=== PATIENT | male | born 1935 | race Caucasian/White ===

== ENCOUNTER 2016-05-25 18:05 | Inpatient (IN) | payer OTHER, MEDICAID ==
[~2016-05-25] VITALS: Ht 180.3 cm; Wt 75.3 kg
[2016-05-25 18:05] VITALS: BP 110/75; PULSE 68; RESP 19; TEMP 97.6; O2SAT 94
[~2016-05-25 18:05] MED LIST: ACET325T53 GT; ALBU2.5V7 INH; ARGI1POW13 PO; ASCO120G2 GT; ASPI81TA2 GT; ATEN-41 GT; BACL10TA GT; BISA10SU8 RC; BRI.2% LEFT EYE; CALC500T3 GT; CHLO118M PO; DULO30CA51 GT; FERR220S5 GT; GLIM4TAB GT; GLUC1VIA4 IJ; HYDR-1189 GT; IPRA0.2S53 NEB; LACTIN GT; LASI20 GT; MAGN400C GT; MAGN400O4 PO; METF-305 GT; MULT-1117 GT; NITR0.4T6 SL; PREG75CA GT; PROM25TA15 GT; SSREG SUBCUT; SUCR1ORA GT; SUCR1ORA2 GT; TRAV2.5D6 LEFT EYE; TYLL650 GT; VITD2000 PO; ZIN220 PO; [UNRECOGNIZED DRUG - CODE] IT; [UNRECOGNIZED DRUG - CODE] IV
--- NOTE | 2016-05-25 18:05 | NUR ---
Patient to ER bed 2 to gown for evaluation. Side rails up. Report given to TOÑO Tovar.
[2016-05-25] MEDS ORDERED: NS 1000 ML BAG IV ONE (18:15)
--- NOTE | 2016-05-25 18:15 | NUR ---
NICK Chauhan at bedside examining patient. Addendum: 05/25/16 at [address] Patel at bedside.
--- NOTE | 2016-05-25 19:25 | NUR ---
Assumed care of pt. No s/s of acute distress noted at this time
[2016-05-25] MEDS ORDERED: PIPERACILLIN/TAZO 3.375 GM in NS 50 ML IV ONE (19:30)
[2016-05-25 19:32] LABS: BASOPHILS # (AUTO) 0.1 K/uL (0.0-0.2); BASOPHILS % (AUTO) 0.5 % (0.0-2.0); EOSINOPHILS # (AUTO) 0.3 K/uL (0.0-0.4); EOSINOPHILS % (AUTO) 2.7 % (0.0-4.0); HEMATOCRIT 34.8 % (36-54); HEMOGLOBIN 11.2 g/dL (14.0-18.0); LYMPHOCYTES # (AUTO) 2.5 K/uL (1.0-5.5); LYMPHOCYTES % (AUTO) 19.6 % (20.5-51.5); MEAN CORPUSCULAR HEMOGLOBIN 27 pg (27-31); MEAN CORPUSCULAR HGB CONC 32 % (32-36); MEAN CORPUSCULAR VOLUME 85 fL (79.0-98.0); MONOCYTES % (AUTO) 7.4 % (1.7-9.3); NEUTROPHILS # (AUTO) 9.1 K/uL (1.8-7.7); NEUTROPHILS % (AUTO) 69.8 % (40.0-70.0); PLATELET COUNT (AUTO) 400 K/uL (130-430); RED BLOOD CELL COUNT(AUTO) 4.08 MIL/uL (4.2-6.2); RED CELL DISTRIBUTION WIDTH 17.6 % (9.0-15.0); WHITE BLOOD COUNT (AUTO) 12.9 K/uL (4.8-10.8)
[2016-05-25 19:35] LABS: ANION GAP 5 (5-15); CALCIUM 9.2 mg/dL (8.4-11.0); CHLORIDE 99 mmol/L (98-107); CREATININE 0.73 mg/dL (0.55-1.30); GLUCOSE 122 mg/dL (70-99); POTASSIUM 4.5 mmol/L (3.5-5.1); SODIUM SERUM 135 mmol/L (136-145); UREA NITROGEN, BLOOD 28 mg/dL (8-21)
--- NOTE | 2016-05-25 19:35 | NUR ---
# 22 gauge angiocath placed to R hand. Use of asceptic technique. Opsite placed over site. Blood return noted. Flushed with 10 cc of normal saline. No evidence of infiltration noted. Patient tolerated well.
[2016-05-25 19:39] LABS: ALANINE AMINOTRANSFERASE 21 U/L (12-78); ALBUMIN 3.3 g/dL (3.4-4.8); ASPARTATE AMINOTRANSFERASE 14 U/L (10-37); TOTAL BILIRUBIN 0.3 mg/dL (0.0-1.0); TOTAL PROTEIN, SERUM 7.7 g/dL (6.4-8.3)
[2016-05-25] MEDS ORDERED: PIPERACILLIN/TAZOBACTAM 3.375 GM/VIAL (ZOSYN) IV ONE (19:45)
[2016-05-25] MEDS ORDERED: IPRA0.2S6 INH (19:57)
[2016-05-25] MEDS ORDERED: ACET-1010 GT (19:57)
[2016-05-25] MEDS ORDERED: COLL100 GT (19:57)
[2016-05-25] MEDS ORDERED: ZOLP5TAB2 PO (19:57)
[2016-05-25] MEDS ORDERED: MORP10SO GT (19:57)
[2016-05-25] MEDS ORDERED: OMEP20CA10 GT (19:57)
[2016-05-25] MEDS ORDERED: LORA-259 GT (19:57)
[2016-05-25] MEDS ORDERED: POTA20LI25 GT (19:57)
--- NOTE | 2016-05-25 20:15 | NUR ---
Patient will be admitted to care of Dr Holt. Admitted to Tele IN unit. Will go to room 100A. Report given to TOÑO Snell.
--- NOTE | 2016-05-25 20:16 | NUR ---
ADMISSION NOTE Received patient from ER via gurney. Patient admitted with diagnosis of Aspiration PNA. Patient is awake, alert, oriented X 3. Patient oriented to hospital room, call light, toileting, pain management and safety-teach back done. Patient informed that Felipe will be his nurse and that their room number is 100A. Personal belongings checked and Belongings List documented. Call light within reach.
[2016-05-25 20:26] VITALS: BP 113/65; PULSE 65; RESP 21; TEMP 96.9; O2SAT 100
[2016-05-25] MEDS ORDERED: FLU VACC QS 2016-17(36MOS+)/PF 0.5 ML/SYR SYRINGE I.M. PRN (20:45)
--- NOTE | 2016-05-25 21:00 | NUR ---
initial notes: pt is on bed, alert, awake,oriented x 3. not distress. no pain. pt has tracheostomy with portex 6 connected to t-bar- o2 2l sating 100%. ivf infusing to right hand gauge 22- no infiltration. pt has wound to left clavicular area- with dressing. pt has a scar to right sheen. continent and use urinal. explained to pt to use call light and not to get out of bed. pt understand. needs attended. call light in reach. will monitor.
--- NOTE | 2016-05-25 22:43 | NUR ---
PAGED PAGED [facility] AT [phone] SPOKE WITH
[2016-05-25] MEDS ORDERED: ZOLPIDEM TARTRATE 5 MG TABLET PO PRN (23:00)
[2016-05-25] MEDS ORDERED: ACETAMINOPHEN 500 MG TABLET GT PRN (23:00)
[2016-05-25] MEDS ORDERED: MAGNESIUM SULFATE 50 ML IV PRN (23:00)
[2016-05-25] MEDS ORDERED: POTASSIUM CHLORIDE 10 MEQ TAB.PRT.SR PO PRN (23:00)
[2016-05-25] MEDS ORDERED: LORazepam 2 MG/ML VIAL IVP PRN (23:00)
[2016-05-25] MEDS ORDERED: DOCUSATE SODIUM 100 MG CAPSULE PO PRN (23:00)
[2016-05-25] MEDS ORDERED: DEXTROSE 50% JECT 50 ML DISP.SYRIN IVP PRN (23:00)
[2016-05-25] MEDS ORDERED: ONDANSETRON HCL 4 MG/2 ML VIAL IVP PRN (23:00)
[2016-05-25] MEDS ORDERED: HYDROcodone/ACETAMIN 5-325 MG TAB (NORCO/ VICODIN) GT SCH (23:00)
[2016-05-25] MEDS ORDERED: ALBUTEROL SULFATE 0.083% 2.5 MG/3 ML VIAL.NEB INH PRN ×2 (23:00)
[2016-05-25] MEDS ORDERED: IPRATROPIUM BROM 0.5 MG/2.5 ML VIAL.NEB (ATROVENT) INH PRN (23:00)
[2016-05-25] MEDS ORDERED: ACETAMINOPHEN 325 MG TABLET PO PRN (23:00)
--- NOTE | 2016-05-25 23:28 | NUR ---
MD MCKNIGHT CALLED [facility] AT SPOKE WITH DR.REZVANI MEYER [employer] PA[employer] BOOKKEEPER.
[2016-05-25] MEDS ORDERED: VANCOMYCIN HCL 1,000 MG in NS 250 ML IV ONE (23:30)
--- NOTE | 2016-05-25 23:30 | NUR ---
round and pain medication: pt is complain of headache. vital sign are with in normal limit. explained not to get oob. needs attended. will monitor.
[2016-05-25 23:47] VITALS: BP 125/65; PULSE 67; RESP 18; TEMP 98; O2SAT 100
[2016-05-25] MEDS: HYDROcodone/ACETAMIN 5-325 MG TAB (NORCO/ VICODIN) GT PRN (23:50)
--- NOTE | 2016-05-25 23:54 | NUR ---
CONSULT: CONSULT CALLED FOR DR. VIDA JARVIS I SPOKE WITH RICO STANFORD REASON FOR CONSULT; pleural effusion NUMBER I CALLED [phone]
[2016-05-26] VITALS (7 sets, daily range): BP systolic 106–131; BP diastolic 54–84; PULSE 55–77; RESP 15–19; TEMP 97–99; O2SAT 94–100
[2016-05-26] MEDS ORDERED: VANCOMYCIN HCL 1000 MG/VIAL IV ONE (00:15)
[2016-05-26] MEDS ORDERED: PIPERACILLIN/TAZOBACTAM 2.25 GM VIAL IV ONE (00:15)
[2016-05-26] MEDS: IPRATROPIUM BROM 0.5 MG/2.5 ML VIAL.NEB (ATROVENT) INH SCH ×4 (00:53→19:36)
--- NOTE | 2016-05-26 02:10 | NUR ---
round notes: pt is awake, alert. no pain. not distress. no sob. pt use urinal. empty and clean the urinal. needs attended. call light in reach. will monitor.
--- NOTE | 2016-05-26 04:00 | NUR ---
round notes: resting. no acute distress. no difficulty of breathing through trach. call light in reach. will monitor.
[2016-05-26] MEDS: BRIMONIDINE TARTRATE 0.2% 5 mL EYE DROPS LEFT EYE SCH ×3 (06:00→21:19)
[2016-05-26] MEDS: HYDROcodone/ACETAMIN 5-325 MG TAB (NORCO/ VICODIN) GT PRN ×3 (06:30→21:22)
[2016-05-26] MEDS: PIPERACILLIN/TAZO 2.25G/DEX-IS 50 ML IV SCH ×4 (06:33→18:28)
[2016-05-26] MEDS: INSULIN ASPART 100 UNITS/ML, 10 ML VIAL (NovoLOG) SUBCUT PRN ×2 (06:42→21:14)
--- NOTE | 2016-05-26 06:44 | NUR ---
closing: pt is awake, alert. complain of pain. blood sugar 216- cover per sliding scale. pain medication given. instructed for safety. needs attended. call light in reach. safety on. 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 will given bedside report to am altagracia.s
[2016-05-26 07:22] LABS: BASOPHILS % (AUTO) 0.3 % (0.0-2.0); EOSINOPHILS # (AUTO) 0.5 K/uL (0.0-0.4); EOSINOPHILS % (AUTO) 4.5 % (0.0-4.0); HEMATOCRIT 30.1 % (36-54); LYMPHOCYTES # (AUTO) 1.7 K/uL (1.0-5.5); LYMPHOCYTES % (AUTO) 14.9 % (20.5-51.5); MEAN CORPUSCULAR HEMOGLOBIN 28 pg (27-31); MEAN CORPUSCULAR HGB CONC 33 % (32-36); MEAN CORPUSCULAR VOLUME 84 fL (79.0-98.0); MONOCYTES % (AUTO) 8.9 % (1.7-9.3); NEUTROPHILS # (AUTO) 8.3 K/uL (1.8-7.7); NEUTROPHILS % (AUTO) 71.4 % (40.0-70.0); PLATELET COUNT (AUTO) 326 K/uL (130-430); RED BLOOD CELL COUNT(AUTO) 3.59 MIL/uL (4.2-6.2); WHITE BLOOD COUNT (AUTO) 11.5 K/uL (4.8-10.8)
[2016-05-26 07:34] LABS: ANION GAP 6 (5-15); CALCIUM 8.4 mg/dL (8.4-11.0); CHLORIDE 102 mmol/L (98-107); CREATININE 0.63 mg/dL (0.55-1.30); GLUCOSE 193 mg/dL (70-99); POTASSIUM 4.3 mmol/L (3.5-5.1); SODIUM SERUM 137 mmol/L (136-145); UREA NITROGEN, BLOOD 19 mg/dL (8-21)
[2016-05-26 07:37] LABS: PROTHROMBIN TIME 10.9 SECS (9.5-12.5)
[2016-05-26] MEDS: BACLOFEN 10 MG TABLET GT SCH ×2 (08:33→21:15)
[2016-05-26] MEDS: DULoxetine HCL 30 MG CAPSULE.DR (CYMBALTA) GT SCH (08:33)
[2016-05-26] MEDS: GLIMEPIRIDE 2 MG TABLET GT SCH (08:34)
[2016-05-26] MEDS: ASPIRIN 81 MG TAB.CHEW GT SCH (08:34)
[2016-05-26] MEDS: PREGABALIN 75 MG CAPSULE (LYRICA) GT SCH ×2 (08:35→21:15)
[2016-05-26] MEDS: ATENOLOL 25 MG TABLET(TENORMIN) GT SCH (08:35)
[2016-05-26] MEDS: BISACODYL 10 MG/SUPPOSITORY RC SCH (08:35)
[2016-05-26] MEDS: HEPARIN SODIUM,PORCINE 5000 UNITS/ML VIAL SUBCUT SCH ×2 (08:38→21:18)
--- NOTE | 2016-05-26 09:02 | NUR ---
Nutrition Update Juan Carlos Scale 18 noted. Pt admitted for aspiration pneumonia. Diet: Nutren Pulmonary at 60 ml/hr, Free Water Flush: 150 Q6h via GT BMI: 23.2 kg/m2 RD to follow per nutrition care standards.
[2016-05-26] MEDS: FUROSEMIDE 40 MG/4 ML VIAL IVP SCH (09:16)
[2016-05-26] MEDS: DOCUSATE SODIUM 100 MG/10 ML UDC GT SCH ×2 (11:33→21:15)
[2016-05-26] MEDS: VANCOMYCIN HCL 1,000 MG in NS 250 ML IV SCH (14:48)
--- NOTE | 2016-05-26 15:54 | NUR ---
placed humidifier and trach care done.no adverse effect noted.
[2016-05-26] MEDS: MORPHINE 2 MG/ML INJ. SYRINGE IVP PRN (18:31)
--- NOTE | 2016-05-26 20:00 | NUR ---
OPENING NOTES PATIENT IS A/OX3. NO SIGN OF DISTRESS. BREATHING IS NON LABORED. T-BAR IS NOTED. O2 IS FLOWING. VITAL SIGNS ARE STABLE. PATIENT HAS NO COMPLAINTS OF PAIN AT THIS TIME. PATIENT INSTRUCTED TO CALL FOR ASSISTANCE. CALL LIGHT IS WITHIN REACH. BED ALARM IS ON. WILL CONTINUE TO MONITOR.
--- NOTE | 2016-05-26 21:10 | NUR ---
ROUNDS PATIENT IS BED RESTING AND WATCHING TV. VITAL SIGNS ARE STABLE. BREATHING IS NON LABORED. CALL LIGHT IS WITHIN REACH. BED ALARM IS ON. WILL CONTINUE TO MONITOR.
[2016-05-27] MEDS: PIPERACILLIN/TAZO 2.25G/DEX-IS 50 ML IV SCH ×4 (00:20→17:41)
[2016-05-27 00:22] VITALS: BP 104/58; PULSE 72; RESP 20; TEMP 97.8; O2SAT 94
--- NOTE | 2016-05-27 00:28 | NUR ---
ROUNDS. PATIENT IS IN BED RESTING AND WATCHING TV. NO SIGNS OF DISTRESS, BREATHING IS NON LABORED. PATIENT HAS NO COMPLAINTS OF PAIN. BED ALARM IS ON. CALL LIGHT IS WITHIN REACH. WILL CONTINUE TO MONITOR.
[2016-05-27] MEDS: IPRATROPIUM BROM 0.5 MG/2.5 ML VIAL.NEB (ATROVENT) INH SCH ×4 (01:25→19:09)
[2016-05-27] MEDS: VANCOMYCIN HCL 1,000 MG in NS 250 ML IV SCH ×2 (01:30→13:27)
--- NOTE | 2016-05-27 02:38 | NUR ---
ROUNDS PATIENT IS IN BED SLEEPING. NO SIGNS OF DISTRESS. BREATHING IS NON LABORED. CALL LIGHT IS WITHIN REACH. SAFETY MEASURES ARE IN PLACE. WILL CONTINUE TO MONITOR.
[2016-05-27 04:23] VITALS: BP 118/63; PULSE 70; RESP 16; TEMP 96.6; O2SAT 100
--- NOTE | 2016-05-27 04:50 | NUR ---
ROUNDS/ PATIENT REMOVED T-BAR PATIENT REMOVED. O2 SAT=97, RR 16. NO SIGNS OF DISTRESS. BREATHING IS NON LABORED. T-BAR WAS CONNECTED BACK TO PATIENT. PATIENT INSTRUCTED AND EDUCATED ON THE IMPORTANCE OF LEAVING T-BAR IN PLACE. PATIENT SHOOK HIS HEAD"YES" AND MUTTERED OKAY. WILL CONTINUE TO MONITOR.
--- NOTE | 2016-05-27 05:05 | NUR ---
PAIN PATIENT HAS COMPLAINTS OF PAIN. WILL GIVE PRN PAIN MEDICATION.
[2016-05-27] MEDS: MORPHINE 2 MG/ML INJ. SYRINGE IVP PRN ×2 (05:10→21:11)
[2016-05-27] MEDS: BRIMONIDINE TARTRATE 0.2% 5 mL EYE DROPS LEFT EYE SCH ×3 (05:43→20:52)
[2016-05-27] MEDS: INSULIN ASPART 100 UNITS/ML, 10 ML VIAL (NovoLOG) SUBCUT PRN ×3 (05:53→21:05)
--- NOTE | 2016-05-27 06:49 | NUR ---
CALLED SON/BEN FOR ANSWERS TO CONTRAST QUESTIONNAIRE CALLED SON ELMER FOR ANSWERS TO CONTRAST QUESTIONNAIRE. SON WAS ABLE TO PROVIDED ANSWERS TO THE BEST OF HIS ABILITY.
--- NOTE | 2016-05-27 06:57 | NUR ---
CLOSING NOTES PATIENT IS IN BED WATCHING TV. NO SIGNS OF DISTRESS. BREATHING IS NON LABORED. IV IS PATENT AND SHOW NO SIGNS OF COMPLICATION. T-BAR IS IN PLACE. CALL LIGHT IS WITHIN REACH. BED ALARM IS ON. SAFETY MEASURES ARE IN PLACE. WILL ENDORSE TO THE MORNING NURSE.
[2016-05-27 07:15] LABS: ANION GAP 4 (5-15); CALCIUM 8.7 mg/dL (8.4-11.0); CHLORIDE 101 mmol/L (98-107); CREATININE 0.61 mg/dL (0.55-1.30); GLUCOSE 194 mg/dL (70-99); POTASSIUM 3.8 mmol/L (3.5-5.1); SODIUM SERUM 136 mmol/L (136-145); UREA NITROGEN, BLOOD 19 mg/dL (8-21)
[2016-05-27 07:18] LABS: BASOPHILS % (AUTO) 0.3 % (0.0-2.0); EOSINOPHILS # (AUTO) 0.5 K/uL (0.0-0.4); EOSINOPHILS % (AUTO) 4.9 % (0.0-4.0); HEMATOCRIT 30.9 % (36-54); HEMOGLOBIN 10.1 g/dL (14.0-18.0); LYMPHOCYTES # (AUTO) 1.9 K/uL (1.0-5.5); LYMPHOCYTES % (AUTO) 18.9 % (20.5-51.5); MEAN CORPUSCULAR HEMOGLOBIN 28 pg (27-31); MEAN CORPUSCULAR HGB CONC 33 % (32-36); MEAN CORPUSCULAR VOLUME 85 fL (79.0-98.0); MONOCYTES # (AUTO) 0.9 K/uL (0.0-1.0); NEUTROPHILS # (AUTO) 6.7 K/uL (1.8-7.7); NEUTROPHILS % (AUTO) 66.9 % (40.0-70.0); PLATELET COUNT (AUTO) 340 K/uL (130-430); RED BLOOD CELL COUNT(AUTO) 3.63 MIL/uL (4.2-6.2); RED CELL DISTRIBUTION WIDTH 16.9 % (9.0-15.0)
[2016-05-27 08:00] VITALS: BP 119/66; PULSE 74; RESP 19; TEMP 97.7; O2SAT 98
--- NOTE | 2016-05-27 08:00 | NUR ---
OPENING NOTE: RECEIVED REPORT FROM NIGHT NURSE. PATIENT IS RESTING COMFORTABLY IN BED. NO S/S OF DISTRESS OR SOB. PATIENT IS AWAKE AND ALERT, BUT NONVERBAL. PATIENT C/O OF PAIN. PAIN MEDICATION WILL BE ADMINISTERED. IV IS PATENT AND INFUSING. URINAL AT BEDSIDE. VITAL SIGNS WNL, ASSESSMENT COMPLETE. CALL LIGHT IN REACH, BED IN LOWEST POSITION, AND WILL CONTINUE TO MONITOR.
[2016-05-27] MEDS: DOCUSATE SODIUM 100 MG/10 ML UDC GT SCH ×2 (08:16→20:50)
[2016-05-27] MEDS: GLIMEPIRIDE 2 MG TABLET GT SCH (08:16)
[2016-05-27] MEDS: FUROSEMIDE 40 MG/4 ML VIAL IVP SCH (08:16)
[2016-05-27] MEDS: ATENOLOL 25 MG TABLET(TENORMIN) GT SCH (08:17)
[2016-05-27] MEDS: HYDROcodone/ACETAMIN 5-325 MG TAB (NORCO/ VICODIN) GT PRN ×3 (08:17→17:54)
[2016-05-27] MEDS: BACLOFEN 10 MG TABLET GT SCH ×2 (08:17→20:50)
[2016-05-27] MEDS: DULoxetine HCL 30 MG CAPSULE.DR (CYMBALTA) GT SCH (08:18)
[2016-05-27] MEDS: BISACODYL 10 MG/SUPPOSITORY RC SCH (08:18)
[2016-05-27] MEDS: PREGABALIN 75 MG CAPSULE (LYRICA) GT SCH ×2 (08:18→20:50)
[2016-05-27] MEDS: ASPIRIN 81 MG TAB.CHEW GT SCH (08:18)
[2016-05-27] MEDS: HEPARIN SODIUM,PORCINE 5000 UNITS/ML VIAL SUBCUT SCH ×2 (08:19→21:00)
[2016-05-27 09:48] VITALS: Ht 180.3 cm; Wt 75.3 kg
--- NOTE | 2016-05-27 10:20 | NUR ---
NOTE: PATIENT IS RESTING COMFORTABLY IN BED. NO S/S OF DISTRESS OR SOB. PATIENT IS AWAKE AND ALERT. CALL LIGHT IN REACH, BED IN LOWEST POSITION, AND WILL CONTINUE TO MONITOR.
--- NOTE | 2016-05-27 12:00 | NUR ---
NOTE: PATIENT IS RESTING COMFORTABLY IN BED. NO S.S OF DISTRESS OR SOB. THORACENTESIS WAS DONE AND 850ML OF FLUID WAS REMOVED. PATIENT IS ALERT AND ORIENTED, ABLE TO EXPRESS NEEDS, AND ASK FOR ASSISTANCE. CALL LIGHT IN REACH, BED IN LOWEST POSITION, AND WILL CONTINUE TO MONITOR.
[2016-05-27 12:42] VITALS: BP 108/58; PULSE 59; RESP 20; TEMP 96.9; O2SAT 100
--- NOTE | 2016-05-27 14:00 | NUR ---
NOTE: PATIENT IS RESTING COMFORTABLY IN BED. NO S.S OF DISTRESS OR SOB. PATIENT IS ALERT AND ORIENTED, NONVERBAL. CALL LIGHT IN REACH, BED IN LOWEST POSITION, AND WILL CONTINUE TO MONITOR.
--- NOTE | 2016-05-27 16:00 | NUR ---
NOTE: PATIENT IS RESTING COMFORTABLY IN BED. NO S.S OF DISTRESS OR SOB. PATIENT IS ALERT AND ORIENTED. CALL LIGHT IN REACH, BED IN LOWEST POSITION, AND WILL CONTINUE TO MONITOR.
[2016-05-27 16:12] LABS: BODY FLUID SOURCE/ TYPE PLEURAL; SOURCE/TYPE ,BODY FLUID THORACENTESIS
[2016-05-27 16:13] VITALS: BP 110/63; PULSE 58; RESP 20; TEMP 97.3; O2SAT 100
[2016-05-27 16:13] LABS: APPEARANCE,SPUN,BODY FLUID CLEAR (CLEAR); BF APPEARANCE UNSPUN SLIGHTLY CLOUDY (CLEAR); BODY FLUID COLOR YELLOW (LT YELLOW); BODY FLUID TOTAL VOLUME 700 mL
--- NOTE | 2016-05-27 18:32 | NUR ---
CLOSING NOTE: PATIENT IS RESTING COMFORTABLY IN BED. NO S/S OF DISTRESS OR SOB. PATIENT IS ALERT AND ORIENTED, NON VERBAL. IV IS PATENT AND INFUSING. G-TUBE FEEDING IN PLACE. CALL LIGHT IN REACH, BED IN LOWEST POSITION, AND WILL GIVE REPORT TO NIGHT NURSE.
[2016-05-27 20:00] VITALS: BP 113/64; PULSE 61; RESP 20; TEMP 98; O2SAT 99
--- NOTE | 2016-05-27 20:00 | NUR ---
Initial Notes Received patient resting in bed, awake, alert, oriented. Patient denies any acute distress or pain at this time. Breathing even and unlabored, on 2L O2 via T-bar. Vital signs stable. IV site patent/clean/dry. GT feeding being tolerated, 0ml residual noted, HOB elevated. Patient repositioned for comfort. Needs addressed. Educated patient on use of call light for assistance and fall precautions, patient verbalized understanding. Call light in hand, will will continue to monitor.
[2016-05-27 20:27] LABS: BODY FLUID GLUCOSE 185 mg/dL
--- NOTE | 2016-05-27 22:00 | NUR ---
Rounds and new IV insertion and Hygiene care Patient resting in bed, awake. Denies any acute distress, breathing even and unlabored. Patient had removed IV access. New IV access started right forearm #22, good blood return noted, no S/S infiltration noted. Bedbath and linen change provided. Call light in hand, fall precautions in place. Will continue to monitor.
[2016-05-27 22:55] LABS: WBC, BODY FLUID 324 /uL
[2016-05-27 22:56] LABS: BODY FLUID OTHER CELLS SEECOMMENT %; EOSINOPHIL, BODY FLUID 11 %; LYMPHOCYTES, BODY FLUID 13 %; MONOCYTES,BODY FLUID 60 %; NEUTROPHIL, BODY FLUID 16 %; RBC, BODY FLUID 1114 /uL
[2016-05-28] VITALS (8 sets, daily range): BP systolic 94–124; BP diastolic 46–66; PULSE 70–80; RESP 17–22; TEMP 96.6–98.4; O2SAT 99–100
--- NOTE | 2016-05-28 | NUR ---
Rounds Patient resting in bed with eyes closed. No acute distress noted, breathing even and unlabored. Call light in hand, will continue to monitor.
[2016-05-28] MEDS: PIPERACILLIN/TAZO 2.25G/DEX-IS 50 ML IV SCH ×4 (00:15→17:22)
[2016-05-28] MEDS: VANCOMYCIN HCL 1,000 MG in NS 250 ML IV SCH ×2 (00:46→13:00)
--- NOTE | 2016-05-28 01:00 | NUR ---
NOTES PATIENT RESTING COMFORTABLY AND IN GOOD SPIRITS. NO SIGNS OR SYMPTOMS OF DISTRESS NOTED. VITAL SIGN STABLE. FALL PRECAUTIONS IN PLACE. CALL LIGHT WITHIN REACH. WILL CONTINUE TO MONITOR.
--- NOTE | 2016-05-28 02:00 | NUR ---
Rounds Patient resting in bed with eyes closed. No acute distress noted, breathing even and unlabored. Call light in hand, fall precautions in place. Will continue to monitor for changes and safety.
[2016-05-28] MEDS: IPRATROPIUM BROM 0.5 MG/2.5 ML VIAL.NEB (ATROVENT) INH SCH ×4 (02:16→19:32)
--- NOTE | 2016-05-28 04:00 | NUR ---
Rounds Patient resting in bed with eyes closed, easily aroused. Patient denies any acute distress or pain at this time. Breathing even and unlabored. Patient repositioned for comfort. New tube feeding and tubing hanged. Patient tolerating feeding well, 0ml residual noted. Call light in hand, fall precautions in place. Will continue to monitor.
[2016-05-28] MEDS: MORPHINE 2 MG/ML INJ. SYRINGE IVP PRN ×4 (04:49→21:40)
[2016-05-28] MEDS: BRIMONIDINE TARTRATE 0.2% 5 mL EYE DROPS LEFT EYE SCH ×3 (05:01→22:21)
[2016-05-28] MEDS: INSULIN ASPART 100 UNITS/ML, 10 ML VIAL (NovoLOG) SUBCUT PRN ×4 (05:40→22:17)
[2016-05-28 07:19] LABS: BASOPHILS % (AUTO) 0.3 % (0.0-2.0); EOSINOPHILS # (AUTO) 0.4 K/uL (0.0-0.4); EOSINOPHILS % (AUTO) 3.5 % (0.0-4.0); HEMATOCRIT 32.8 % (36-54); HEMOGLOBIN 10.6 g/dL (14.0-18.0); LYMPHOCYTES # (AUTO) 1.9 K/uL (1.0-5.5); LYMPHOCYTES % (AUTO) 14.9 % (20.5-51.5); MEAN CORPUSCULAR HEMOGLOBIN 28 pg (27-31); MEAN CORPUSCULAR HGB CONC 33 % (32-36); MEAN CORPUSCULAR VOLUME 86 fL (79.0-98.0); MONOCYTES # (AUTO) 1.1 K/uL (0.0-1.0); MONOCYTES % (AUTO) 8.8 % (1.7-9.3); NEUTROPHILS # (AUTO) 9.2 K/uL (1.8-7.7); NEUTROPHILS % (AUTO) 72.5 % (40.0-70.0); PLATELET COUNT (AUTO) 328 K/uL (130-430); RED BLOOD CELL COUNT(AUTO) 3.81 MIL/uL (4.2-6.2); RED CELL DISTRIBUTION WIDTH 17.2 % (9.0-15.0); WHITE BLOOD COUNT (AUTO) 12.6 K/uL (4.8-10.8)
[2016-05-28 07:25] LABS: CALCIUM 8.9 mg/dL (8.4-11.0); CHLORIDE 103 mmol/L (98-107); CREATININE 0.67 mg/dL (0.55-1.30); GLUCOSE 218 mg/dL (70-99); POTASSIUM 3.9 mmol/L (3.5-5.1); SODIUM SERUM 136 mmol/L (136-145); UREA NITROGEN, BLOOD 20 mg/dL (8-21)
[2016-05-28 07:27] LABS: ANION GAP < 3 (5-15)
--- NOTE | 2016-05-28 07:51 | NUR ---
OPENING NOTE: RECEIVED REPORT FROM NIGHT NURSE. PATIENT IS RESTING COMFORTABLY IN BED. NO S/S OF DISTRESS OR SOB. PATIENT IS ALERT AND ORIENTED, NONVERBAL. PATIENT IS ABLE TO MOUTH NEEDS OR POINT TO PAPER WITH NEEDS WRITTEN . IV IS PATENT AND INFUSING. URINAL AT BEDSIDE. G-TUBE FEEDING IN PLACE, DRESSING CDI. VITAL SIGNS WNL, ASSESSMENT COMPLETE. CALL LIGHT IN REACH, BED IN LOWEST POSITION, AND WILL CONTINUE TO MONITOR.
[2016-05-28] MEDS: PREGABALIN 75 MG CAPSULE (LYRICA) GT SCH ×2 (08:59→22:14)
[2016-05-28] MEDS: BACLOFEN 10 MG TABLET GT SCH ×2 (08:59→22:14)
[2016-05-28] MEDS: DULoxetine HCL 30 MG CAPSULE.DR (CYMBALTA) GT SCH (09:00)
[2016-05-28] MEDS: DOCUSATE SODIUM 100 MG/10 ML UDC GT SCH ×2 (09:00→22:21)
[2016-05-28] MEDS: ASPIRIN 81 MG TAB.CHEW GT SCH (09:00)
[2016-05-28] MEDS: LACTOBACILLUS RHAMNOSUS GG 1 CAP CAPSULE PO SCH ×2 (09:00→22:14)
[2016-05-28] MEDS: BISACODYL 10 MG/SUPPOSITORY RC SCH (09:00)
[2016-05-28] MEDS: GLIMEPIRIDE 2 MG TABLET GT SCH (09:01)
[2016-05-28] MEDS: ATENOLOL 25 MG TABLET(TENORMIN) GT SCH (09:02)
[2016-05-28] MEDS: FUROSEMIDE 40 MG/4 ML VIAL IVP SCH (09:02)
[2016-05-28] MEDS: HEPARIN SODIUM,PORCINE 5000 UNITS/ML VIAL SUBCUT SCH ×2 (09:04→22:16)
[2016-05-28] MEDS ORDERED: IOHEXOL 100 ML IV ONE (09:07)
--- NOTE | 2016-05-28 10:00 | NUR ---
NOTE: PATIENT IS RESTING COMFORTABLY IN BED. NO S/S OF DISTRESS OR SOB. PATIENT IS ALERT AND ORIENTED. CALL LIGHT IN REACH, BED IN LOWEST POSITION, AND WILL CONTINUE TO MONITOR.
[2016-05-28] MEDS: HYDROcodone/ACETAMIN 5-325 MG TAB (NORCO/ VICODIN) GT PRN ×2 (10:39→19:00)
--- NOTE | 2016-05-28 12:17 | NUR ---
NOTE: PATIENT IS RESTING COMFORTABLY IN BED. NO S/S OF DISTRESS OR SOB. PATIENT IS AWAKE AND ALERT. NONVERBAL. CALL LIGHT IN REACH, BED IN LOWEST POSITION, AND WILL CONTINUE TO MONITOR.
--- NOTE | 2016-05-28 18:11 | NUR ---
CLOSING NOTE: PATIENT IS RESTING COMFORTABLY IN BED. NO S/S OF DISTRESS OR SOB. PATIENT IS ALERT AND ORIENTED. NONVERBAL. IV IS PATENT AND INFUSING. CALL LIGHT IN REACH, ALL NEEDS MET, BED IN LOWEST POSITION, AND WILL CONTINUE TO MONITOR.
--- NOTE | 2016-05-28 19:20 | NUR ---
OPENING NOTES REPORT TAKEN AT BEDSIDE FROM DAY SHIFT NURSE. PATIENT IS SITTING UP WATCHING TV AND RESTING COMFORTABLY IN BED. NO SIGNS OR SYMPTOMS OF DISTRESS. PATIENT IS NONVERBAL. BED IN LOWEST POSITION, BED ALARM ARMED. IV IS PATENT. GT IS PATENT AND INFUSING. WILL CONTINUE TO MONITOR.
--- NOTE | 2016-05-28 21:00 | NUR ---
NOTES PATIENT WAS RESTING COMFORTABLY. BED IN LOWEST POSITION, BED ALARM ARMED, CALL LIGHT WITHIN REACH. WILL CONTINUE TO MONITOR FREQUENTLY.
--- NOTE | 2016-05-28 21:30 | NUR ---
PAIN MEDICATION PATIENT REQUESTING PAIN MEDICATION FOR PAIN OF 10.
--- NOTE | 2016-05-28 22:30 | NUR ---
PAGED PAGED DR. MCKENNA, WAITING FOR RETURN CALL.
--- NOTE | 2016-05-29 00:30 | NUR ---
NOTES PATIENT WAS RESTING COMFORTABLY. BED IN LOWEST POSITION, BED ALARM ARMED, CALL LIGHT WITHIN REACH. WILL CONTINUE TO MONITOR FREQUENTLY.
[2016-05-29] MEDS: PIPERACILLIN/TAZO 2.25G/DEX-IS 50 ML IV SCH ×5 (01:12→23:35)
[2016-05-29] MEDS: IPRATROPIUM BROM 0.5 MG/2.5 ML VIAL.NEB (ATROVENT) INH SCH ×4 (01:14→19:47)
--- NOTE | 2016-05-29 02:30 | NUR ---
NOTES PATIENT WAS RESTING COMFORTABLY. BED IN LOWEST POSITION, BED ALARM ARMED, CALL LIGHT WITHIN REACH. WILL CONTINUE TO MONITOR FREQUENTLY.
[2016-05-29] MEDS: HYDROcodone/ACETAMIN 5-325 MG TAB (NORCO/ VICODIN) GT PRN ×5 (02:57→22:09)
[2016-05-29 03:35] VITALS: BP 109/55; PULSE 80; RESP 20; TEMP 98; O2SAT 98
--- NOTE | 2016-05-29 04:30 | NUR ---
NOTES PATIENT WAS RESTING COMFORTABLY. BED IN LOWEST POSITION, BED ALARM ARMED, CALL LIGHT WITHIN REACH. WILL CONTINUE TO MONITOR FREQUENTLY.
[2016-05-29] MEDS: BRIMONIDINE TARTRATE 0.2% 5 mL EYE DROPS LEFT EYE SCH ×3 (05:36→21:57)
[2016-05-29] MEDS: INSULIN ASPART 100 UNITS/ML, 10 ML VIAL (NovoLOG) SUBCUT PRN ×4 (05:41→22:26)
--- NOTE | 2016-05-29 06:30 | NUR ---
NOTES PATIENT WAS RESTING COMFORTABLY. BED IN LOWEST POSITION, BED ALARM ARMED, CALL LIGHT WITHIN REACH. WILL CONTINUE TO MONITOR FREQUENTLY.
--- NOTE | 2016-05-29 06:46 | NUR ---
CALLED ID CONSULT TO DR FLORES, RE: SEPSIS. SPOKE TO JESU
[2016-05-29 07:21] LABS: BASOPHILS % (AUTO) 0.2 % (0.0-2.0); EOSINOPHILS # (AUTO) 0.5 K/uL (0.0-0.4); EOSINOPHILS % (AUTO) 3.2 % (0.0-4.0); HEMATOCRIT 31.1 % (36-54); HEMOGLOBIN 10.2 g/dL (14.0-18.0); LYMPHOCYTES # (AUTO) 2.6 K/uL (1.0-5.5); LYMPHOCYTES % (AUTO) 15.6 % (20.5-51.5); MEAN CORPUSCULAR HEMOGLOBIN 28 pg (27-31); MEAN CORPUSCULAR HGB CONC 33 % (32-36); MEAN CORPUSCULAR VOLUME 85 fL (79.0-98.0); MONOCYTES # (AUTO) 1.1 K/uL (0.0-1.0); MONOCYTES % (AUTO) 6.6 % (1.7-9.3); NEUTROPHILS # (AUTO) 12.3 K/uL (1.8-7.7); NEUTROPHILS % (AUTO) 74.4 % (40.0-70.0); PLATELET COUNT (AUTO) 333 K/uL (130-430); RED BLOOD CELL COUNT(AUTO) 3.68 MIL/uL (4.2-6.2); RED CELL DISTRIBUTION WIDTH 17.7 % (9.0-15.0); WHITE BLOOD COUNT (AUTO) 16.5 K/uL (4.8-10.8)
[2016-05-29 07:47] LABS: ANION GAP 4 (5-15); CALCIUM 8.7 mg/dL (8.4-11.0); CHLORIDE 102 mmol/L (98-107); CREATININE 0.86 mg/dL (0.55-1.30); GLUCOSE 238 mg/dL (70-99); POTASSIUM 3.8 mmol/L (3.5-5.1); SODIUM SERUM 138 mmol/L (136-145); UREA NITROGEN, BLOOD 29 mg/dL (8-21)
--- NOTE | 2016-05-29 08:00 | NUR ---
NOTES IN BED AWAKE, ALERT AND ORIENTED. COMMUNICATE IN WRITING. TRACH TO O2 2L. NO DISTRESS NOTED. CONTINENT OF URINE. ABLE TO ASSESS IN TURNING. SAFETY PRECAUTION OBSERVED. WILL MONITOR.
--- NOTE | 2016-05-29 08:00 | NUR ---
0832 patient complaining of headache and left neck pain, medicated with morphine 2 mg IVP.
--- NOTE | 2016-05-29 08:10 | NUR ---
CLOSING NOTES REPORT GIVEN AT BEDSIDE TO ONCOMING NURSE FOR DAYSHIFT. PATIENT WAS RESTING COMFORTABLY. IV PATENT, ON 2L OF OXYGEN. NO SHORTNESS OF BREATH NOTED. NO VISIBLE SIGNS OR SYMPTOMS OF DISTRESS NOTED. BED IN LOWEST POSITION, BED ALARM ON, AND CALL LIGHT WITHIN REACH. WILL ENDORSE CARE TO DAY SHIFT NURSE.
[2016-05-29] MEDS: MORPHINE 2 MG/ML INJ. SYRINGE IVP PRN ×2 (08:32→13:16)
[2016-05-29] MEDS: BACLOFEN 10 MG TABLET GT SCH ×2 (09:39→21:56)
[2016-05-29] MEDS: LACTOBACILLUS RHAMNOSUS GG 1 CAP CAPSULE PO SCH ×2 (09:39→21:56)
[2016-05-29] MEDS: HEPARIN SODIUM,PORCINE 5000 UNITS/ML VIAL SUBCUT SCH ×2 (09:43→21:59)
[2016-05-29] MEDS: PREGABALIN 75 MG CAPSULE (LYRICA) GT SCH ×2 (09:45→21:56)
[2016-05-29] MEDS: GLIMEPIRIDE 2 MG TABLET GT SCH (09:46)
[2016-05-29] MEDS: VANCOMYCIN HCL 750 MG in NS 250 ML IV SCH (09:48)
[2016-05-29] MEDS: ATENOLOL 25 MG TABLET(TENORMIN) GT SCH (09:55)
[2016-05-29] MEDS: ASPIRIN 81 MG TAB.CHEW GT SCH (09:55)
--- NOTE | 2016-05-29 10:00 | NUR ---
Repositioned to his left side ,skin assestment done .no skin breakdown noted. patient able to assist with turning. denies pain at this time.
--- NOTE | 2016-05-29 10:15 | NUR ---
Wound Evaluation: Wound Consult ordered for Low Juan Carlos Score. Patient evaluated for a low Juan Carlos score of 10. Patient was awake, alert, non-verbal, and received in a Diggs Bed with an Atmos-Air 9000 mattress. Patient needs some assist to turn in bed. Skin is fair. Recommend encourage and assist patient as needed with repositioning every 2 hours with pillow support. Elevate, off-load and float bilateral heels with pillows. Offload pressure areas with pillows for pressure re-distribution. Perform skin care and monitor skin integrity Q shift. Use moisture barrier cream on moisture susceptible areas QID and PRN for soiling. Place patient on a low air-loss mattress. Will continue to follow as a Juan Carlos.
--- NOTE | 2016-05-29 11:04 | NUR ---
Patient complaining of neck pain ,[facility] 5 mg/325 mg 1 tablet given via GT .
[2016-05-29] MEDS: DULoxetine HCL 30 MG CAPSULE.DR (CYMBALTA) GT SCH (11:05)
[2016-05-29] MEDS: DOCUSATE SODIUM 100 MG/10 ML UDC GT SCH ×2 (11:05→21:57)
[2016-05-29] MEDS: BISACODYL 10 MG/SUPPOSITORY RC SCH (11:06)
[2016-05-29] MEDS: FUROSEMIDE 40 MG/4 ML VIAL IVP SCH (11:13)
--- NOTE | 2016-05-29 12:07 | NUR ---
Nutrition F/U Admitting Diagnosis Aspiration PNA, sepsis, R-sided pleural effusion, moderate malnutrition Pertinent Medical/Surgical Hx Medical Record 05/27/16 R Thoracentesis; r850 ml of rivera-colored fluid removed Medical History Comment: Laryngeal cancer, chronic respiratory failure, dysphagia, moderate malnutrition per MD notes Subjective Information Pt seen awake, +non-verbal, +trach to vent, and TF infusing as per MD orders; so far, 862 ml infused, providing 1293 kcal. Primary RN at bedside providing care. RN reports that pt has been tolerating TF well, no residuals, and no N/V. She also reports that pt has pending consult w/ ID MD today d/t elevated WBC. RN denies that pt had any BM during her shift today, but that pt was reported to have a BM yesterday. Per EMR, TF Intakes: 720 ml 05/29/16; Residuals: 20 ml 05/28/16; abd is soft w/ active bowel sounds. MD signed off on RD rec note; RD implemented new TF order and notified RN. Pt is meeting adequate nutritional needs. Pt is not appropriate for nutrition education. Current Diet Order/Nutrition Support Nutren Pulmonary at 60 ml/hr, Prosource BID, Free Water Flush: 150 ml Q6h via GT (x3 days) Patient/Significant Other Unable To Verbalize Significant Other Education Not Indicated Pertinent Medications Reviewed Pertinent Labs Reviewed Height (Feet) 5 feet Height (Inches) 11.00 inches Weight (Pounds) 166 pounds (admission) Weight (Calculated Kilograms) 75.392889 kilograms Patient Weight 75.296 kg Body Mass Index 23.15 %IBW 97 [place]/Adjusted Body Weight IBW: 172 lb (78 kg) Recent Weight Change No Weight Status Appropriate Gastrointestinal Symptoms None Difficulty With: Swallowing Chewing Food Allergies Unknown Usual Diet At Home N/A Skin Integrity Comment: Juan Carlos score 10; anterior upper neck stoma Estimated Energy Expenditure (Kcals/Day) 2831-6145 kcal/day (30-35 kcal/kg CBW - sepsis, malnutrition) Fluid: ml 2.3-2.6 L/d (30-35 ml/kg for geriatric maintenance) Protein g/k-150 gm/d (1.5-2 g/kg IBW for maintenance) Problem: Increased nutrient needs related to Etiology: metabolic demands as evidenced by Signs/Symptoms: increased estimated caloric and protein requirements for sepsis. Expected Outcomes/Goals 1. Monitor tube feeding intakes with goal of meeting at least 75% of estimated caloric and protein needs with acceptable tolerance 2. Labs trending within normal limits 3. Improved skin integrity 4. Weight maintenance, weight gain 5. Maintain normal GI function Dietitian Recommendations * Recommend continuing Nutren Pulmonary at 60 ml/hr, FWF: 150 ml q6h via GT Provides: 2280 kcal/day, 128 gm protein/day, and 1726 ml free water/day Meets 101% of low end of caloric needs and 113% of low end of protein needs. Follow Up Moderate Risk: F/U in 3-5 days Addendum: 05/29/16 at [address] Nutrition Consult (Low Juan Carlos Score of 10) received 05/29/16 0304
[2016-05-29 12:27] VITALS: BP 100/55; PULSE 71; RESP 22; TEMP 97.8; O2SAT 97
--- NOTE | 2016-05-29 13:18 | NUR ---
Medicated with Morphine 2 mg IVP for neckpain and headache.
--- NOTE | 2016-05-29 14:40 | NUR ---
DC PLANNING: PER DR. MCKENNA, HE IS PLANNING TO DC THE PT. BACK TO [facility] TOMORROW. THE ORDER RECEIVED AND CARRIED OUT. LISSETTE MADE AWARE. Addendum: 05/29/16 at 1659 by Lorraine GREEN Faxed referral to [phone]. CM to follow up on AM on bed assignment and discharge order. Addendum: 05/29/16 at 1707 by Lorraine Sweet DP placed transportation packet in nurses station.
--- NOTE | 2016-05-29 16:00 | NUR ---
IN BED, RESTING. NO DISTRESS NOTED.
[2016-05-29 16:04] VITALS: BP 102/54; PULSE 73; RESP 21; TEMP 97.9; O2SAT 97
[2016-05-29 16:48] VITALS: BP 102/54; PULSE 73
--- NOTE | 2016-05-29 20:00 | NUR ---
ROUNDS PATIENT IN BED, NOT IN DISTRESS, VITAL STABLE, ON TRACH TO T-BAR, NON VERBAL. NO SIGNS ON ANY PAIN AND DISCOMFORT NOTED AT THIS TIME. ASSESSMENT DONE AND DOCUMENTED. SEE FLOWSHEET. NEEDS ATTENDED TO. REPOSITIONED AND MADE COMFORTABLE. SAFETY AND FALL PRECAUTION MEASURES IN PLACED. BED IN LOW AND LOCKED POSITION. WILL CONTINUE TO MONITOR.
--- NOTE | 2016-05-29 21:00 | NUR ---
MEDICATION DUE MEDICATIONS GIVEN ORDERED, TOLERATED WELL. WILL CONTINUE TO MONITOR.
[2016-05-30] VITALS: BP 103/58; PULSE 64; RESP 18; TEMP 98; O2SAT 94
--- NOTE | 2016-05-30 | NUR ---
PATIENT RESTING: Patient resting quietly. No acute distress noted. Vital signs within normal range.
[2016-05-30] MEDS: IPRATROPIUM BROM 0.5 MG/2.5 ML VIAL.NEB (ATROVENT) INH SCH ×3 (01:22→13:36)
[2016-05-30] MEDS: HYDROcodone/ACETAMIN 5-325 MG TAB (NORCO/ VICODIN) GT PRN ×3 (02:34→14:31)
[2016-05-30 04:00] VITALS: BP 112/53; PULSE 61; RESP 18; TEMP 96.8; O2SAT 100
--- NOTE | 2016-05-30 04:00 | NUR ---
PATIENT RESTING: Patient resting quietly. No acute distress noted. Vital signs within normal range.
[2016-05-30] MEDS: MORPHINE 2 MG/ML INJ. SYRINGE IVP PRN ×2 (04:27→11:13)
[2016-05-30] MEDS: PIPERACILLIN/TAZO 2.25G/DEX-IS 50 ML IV SCH (05:33)
[2016-05-30] MEDS: INSULIN ASPART 100 UNITS/ML, 10 ML VIAL (NovoLOG) SUBCUT PRN ×2 (05:34→12:13)
[2016-05-30] MEDS: BRIMONIDINE TARTRATE 0.2% 5 mL EYE DROPS LEFT EYE SCH ×2 (05:36→14:31)
--- NOTE | 2016-05-30 06:50 | NUR ---
CLOSING NOTES PATIENT STABLE, ACCU CHECK DONE WITH BLOOD SUGAR OF 224 MG/DL. 4 UNITS NOVOLOG GIVEN SUBCU PER SLIDING SCALE. ALL NEEDS ATTENDED TO. WILL ENDORSE TO INCOMING SHIFT NURSE.
[2016-05-30 06:59] LABS: BASOPHILS % (AUTO) 0.3 % (0.0-2.0); EOSINOPHILS # (AUTO) 0.7 K/uL (0.0-0.4); EOSINOPHILS % (AUTO) 5.7 % (0.0-4.0); HEMATOCRIT 28.3 % (36-54); LYMPHOCYTES % (AUTO) 16.8 % (20.5-51.5); MEAN CORPUSCULAR HEMOGLOBIN 27 pg (27-31); MEAN CORPUSCULAR HGB CONC 32 % (32-36); MEAN CORPUSCULAR VOLUME 86 fL (79.0-98.0); MONOCYTES % (AUTO) 8.2 % (1.7-9.3); NEUTROPHILS # (AUTO) 8.3 K/uL (1.8-7.7); PLATELET COUNT (AUTO) 285 K/uL (130-430); RED BLOOD CELL COUNT(AUTO) 3.29 MIL/uL (4.2-6.2); RED CELL DISTRIBUTION WIDTH 17.4 % (9.0-15.0)
[2016-05-30 07:24] LABS: ANION GAP 2 (5-15); CALCIUM 8.6 mg/dL (8.4-11.0); CHLORIDE 103 mmol/L (98-107); CREATININE 0.75 mg/dL (0.55-1.30); GLUCOSE 242 mg/dL (70-99); SODIUM SERUM 138 mmol/L (136-145); UREA NITROGEN, BLOOD 28 mg/dL (8-21)
[2016-05-30 07:41] VITALS: BP 128/53; PULSE 66; RESP 24; TEMP 97.4; O2SAT 100
--- NOTE | 2016-05-30 07:42 | NUR ---
am rounds: received patient on the bed,awake,alert and oriented x3. on t-bar 2l,good saturation.with gtube feeds on going.iv to saline lock at left ac. rt doing suctioning per trach.hhn to be given by the rt.
[2016-05-30] MEDS: VANCOMYCIN HCL 750 MG in NS 250 ML IV SCH (08:27)
[2016-05-30] MEDS: DULoxetine HCL 30 MG CAPSULE.DR (CYMBALTA) GT SCH (08:28)
[2016-05-30] MEDS: GLIMEPIRIDE 2 MG TABLET GT SCH (08:28)
[2016-05-30] MEDS: LACTOBACILLUS RHAMNOSUS GG 1 CAP CAPSULE PO SCH (08:29)
[2016-05-30] MEDS: PREGABALIN 75 MG CAPSULE (LYRICA) GT SCH (08:29)
[2016-05-30] MEDS: DOCUSATE SODIUM 100 MG/10 ML UDC GT SCH (08:29)
[2016-05-30] MEDS: ATENOLOL 25 MG TABLET(TENORMIN) GT SCH (08:30)
[2016-05-30] MEDS: BACLOFEN 10 MG TABLET GT SCH (08:30)
[2016-05-30] MEDS: BISACODYL 10 MG/SUPPOSITORY RC SCH (08:30)
[2016-05-30] MEDS: ASPIRIN 81 MG TAB.CHEW GT SCH (08:30)
[2016-05-30] MEDS: FUROSEMIDE 40 MG/4 ML VIAL IVP SCH (08:31)
[2016-05-30] MEDS: HEPARIN SODIUM,PORCINE 5000 UNITS/ML VIAL SUBCUT SCH (08:41)
--- NOTE | 2016-05-30 09:00 | NUR ---
scheduled meds given via g tube including pain med, checked residual less than 5 cc. Flushed with 150 ml of H2O. g tube site cleansed with wet saline gauze and applied dry gauze after, site clear no redness noted.
--- NOTE | 2016-05-30 09:38 | NUR ---
CM DC PLANNING: [facility]-Rm 214-D NOTIFIED RN/MOLLY TO F/Up WITH DR. MCKENNA ABOUT DC ORDER FOR TODAY BASED ON HIS DC PLANNING ORDER FROM YESTERDAY. CALLED TO [facility]: [phone]; Pt WILL ADMIT TO SUBACUTE UNIT-Rm 214-D. PER ADMITTING NURSE, THEY DO NOT ISOLATE FOR PSEUDOMONAS IN SPUTUM; OTHER C/S ARE NEGATIVE, INCLUDING MRSA. OK TO TRANSFER ANYTIME WHEN READY AND HAVE DC ORDER. DC PACKET AVAILABLE ON [facility]; [employer]IE WILL NEED TO UPDATE WITH NEW INFORMATION/ORDERS, PROG NOTES, MED LIST, LABS. NURSING TO CONTACT AMBULANCE PER PACKET FOR PICK-UP.
--- NOTE | 2016-05-30 11:45 | NUR ---
reassessed pain scale down to 3/10 from 10/29. pt. comfortable, remains awake.
[2016-05-30 12:00] VITALS: BP 107/63; PULSE 59; RESP 21; TEMP 98; O2SAT 100
[2016-05-30] MEDS ORDERED: PIPERACILLIN/TAZO 2.25G/DEX-IS 50 ML IV SCH (12:00)
--- NOTE | 2016-05-30 12:55 | NUR ---
made rounds, pt. resting, no complaints, informed about the discharge after lunch, pt. nodded head.
--- NOTE | 2016-05-30 15:06 | NUR ---
PAGED: CALLED DR MCKENNA'S OFFICE C/O EXCHANGE CHARO FOR VERIFICATION OF ORDER TRANSPORT.
[2016-05-30 15:17] VITALS: BP 107/63; PULSE 60; RESP 20; TEMP 98; O2SAT 100
--- NOTE | 2016-05-30 15:30 | NUR ---
report: report given to prabha frias from [facility].
[2016-05-30 16:00] VITALS: BP 130/69; PULSE 71; RESP 21; TEMP 97.1; O2SAT 100
--- NOTE | 2016-05-30 16:30 | NUR ---
pt. transport here, [facility] ambulance. IV lock on right arm and plugged g tube, changed g- tube dressing, slightly leaking noted. noted wound on left upper chest, close to his neck,took picture and dressing changed by TOÑO Denny.pt. noted always leans on his left side where the wound located. report given by lorena Denny. [facility]
--- NOTE | 2016-05-30 16:40 | NUR ---
added notes: transfer packets with transition care document given to ambulance staff. pt on trach T-bar 2l/min,good saturation.iv to saline lock.gtube clamped.amr transported to [facility] via s in stable condition. spoke to dr plascencia pt ok to transfer without cardiac cath tech.
[2016-05-30] MEDS ORDERED: GENTAMICIN 120 mg/100 mL NS 100 ML IV ONE (21:00)
== END 2016-05-30 16:40 | DRG 871 ==
LOC: SED 18:05 → STU 19:59
PROVIDERS: ADMIT General Practice; ATTEND General Practice
PROC: 0W993ZZ Drainage of Right Pleural Cavity, Percutaneous Approach (ICD-10-PCS; principal; 2016-05-25)
DX: A41.9 Sepsis, unspecified organism (principal); J69.0 Pneumonitis due to inhalation of food and vomit; J90 Pleural effusion, not elsewhere classified; E44.0 Moderate protein-calorie malnutrition; J96.10 Chronic respiratory failure, unspecified whether with hypoxia or hypercapnia; E11.65 Type 2 diabetes mellitus with hyperglycemia; D64.9 Anemia, unspecified; J44.9 Chronic obstructive pulmonary disease, unspecified; I10 Essential (primary) hypertension; K21.9 Gastro-esophageal reflux disease without esophagitis; R13.10 Dysphagia, unspecified; F32.9 Major depressive disorder, single episode, unspecified; Z85.21 Personal history of malignant neoplasm of larynx; Z93.0 Tracheostomy status; Z79.82 Long term (current) use of aspirin; Z93.1 Gastrostomy status; Z79.899 Other long term (current) drug therapy; Z68.23 Body mass index [BMI] 23.0-23.9, adult
CPT/HCPCS: 32555; 36415; 71010; 71260-TC; 80048; 80053; 80202-TC; 82947-TC; 82962; 83605; 83615-TC; 83735-TC; 83880; 84157-TC; 84484; 85025; 85610-TC; 85730-TC; 87040-TC; 87070-TC; 87081; 87116; 87186-TC; 87205-TC; 88108; 88305; 89051-TC; 89060-TC; 93005; 94640; 94760; 96361; 96365; 99285; C1729; J1580; J1644; J1815; J1940; J2270; J2543; J3370; J7030; J7050; Q2037; Q9967